=== PATIENT | male | born 1970 | race Caucasian/White ===

== ENCOUNTER 2020-09-01 11:30 | Day surgery (SDC) | payer OTHER ==
[~2020-09-01] VITALS: Ht 172.7 cm; Wt 86.4 kg
[~2020-09-01 11:30] MED LIST: LIDOcaine Viscous 15ml cup ONE; MIDAZolam 1 MG/ML 5ML VIAL ONE; fentaNYL/PF 50MCG/1 ML 2ML syringe ONE
[2020-09-01 11:36] VITALS: BP 142/71
[2020-09-01] MEDS ORDERED: NO HOME MEDS (11:56)
[2020-09-01 12:09] VITALS: BP 115/70
[2020-09-01 12:18] VITALS: BP 123/83
[2020-09-01 12:25] VITALS: BP 118/68
[2020-09-01 12:30] VITALS: BP 123/76
== END 2020-09-01 12:35 | disposition home or self-care (01) ==
LOC: GI LAB 11:30 → EEVIPCON 13:30
PROVIDERS: ATTEND Internal Medicine Gastroenterology
DX: I85.00 Esophageal varices without bleeding (principal); K76.6 Portal hypertension; K31.89 Other diseases of stomach and duodenum; Z87.891 Personal history of nicotine dependence; Z86.19 Personal history of other infectious and parasitic diseases
CPT/HCPCS: 43235; J2250; J3010; J7040; 99152; A4620